=== PATIENT | male | born 1980 | race African-American/Black ===

== ENCOUNTER 2016-07-19 23:14 | Emergency (ER) | payer OTHER ==
[~2016-07-19] VITALS: Ht 170.2 cm; Wt 66.0 kg
[~2016-07-19 23:14] MED LIST: DILA100C PO; LACTGRA PO; LISI-363 PO; METR-1 PO; PHEN100 PO
[2016-07-19 23:16] VITALS: BP 125/87; PULSE 84; RESP 16; TEMP 99.9; O2SAT 98
[2016-07-20] MEDS ORDERED: ZOFR4TAB PO (00:56)
[2016-07-20] MEDS ORDERED: AMOX500C PO (00:56)
[2016-07-20] MEDS ORDERED: DEXAMETHASONE SOD PHOS 20 MG/5 ML VIAL IM ONE (01:00)
[2016-07-20] MEDS ORDERED: IBUPROFEN 600 MG TAB PO ONE (01:00)
[2016-07-20] MEDS ORDERED: ONDANSETRON ODT 4 MG TAB PO ONE (01:00)
--- NOTE | 2016-07-20 01:00 | PD ---
HPI Chief Complaint: ENT Complaint Time Seen by Provider: 00:56 Travel History International Travel<30 days: No Contact w/Intl Traveler<30days: No Traveled to known affect area: No History of Present Illness HPI 35-year-old black male presents to emergency department with a 2 day history of sore throat, fever and chills, congestion, cough, nausea, and general malaise. He denies any vomiting. No abdominal pain or urinary symptoms. Symptoms are moderate. Worse with swallowing. No alleviating factors. PFSH Past Medical History Narrative Medical HIV positive, Hypertension, seizure disorder Autoimmune Disease: Yes (HIV) Blood Disorders: No Heart Rhythm Problems: No Cancer: No Cardiovascular Problems: Yes High Cholesterol: Yes Chest Pain: No Congestive Heart Failure: No Diminished Hearing: No Endocrine: No Gastrointestinal Disorders: No Genitourinary: No Hypertension: Yes Immune Disorder: Yes (HIV) Implanted Vascular Access Dvce: No Musculoskeletal: No Neurologic: Yes (EPILEPSY) Psychiatric: No Reproductive: No Respiratory: No Seizures: Yes Tetanus Vaccination: < 5 Years Past Surgical History Surgical History: No Previous Surgery Other Surgery: No Social History Alcohol Use: No Tobacco Use: Yes (one pk a week) Substance Use: No Allergies-Medications (Allergen,Severity, Reaction): Coded Allergies: Bactrim (Verified Allergy, Severe, RASH AND BURNING, 07/19/16) Reported Meds & Prescriptions Reported Meds & Active Scripts Active Zofran (Ondansetron HCl) 4 Mg Tab 4 Mg PO Q6HR PRN Amoxicillin 500 Mg Cap 1,000 Mg PO BID Dilantin Kapseals (Phenytoin Sodium) 100 Mg Cap 100 Mg PO TID Lactinex (Lactobacillus Acidophilus) 1 Gm Gra 1 Gm PO TID 10 Days Reported Lisinopril 20 mg (Lisinopril) 20 Mg Tab 1 Tab PO DAILY Dilantin 100 Mg Kapseals (Phenytoin Sodium) 100 Mg Caper 300 Mg PO DAILY Review of Systems Except as stated in HPI: all other systems reviewed are Neg Physical Exam Narrative GENERAL: Well-developed, well-nourished in no acute distress. Nontoxic appearing. HEAD: Normocephalic, atraumatic. EYES: Pupils equal round and reactive. Extraocular motions intact. No scleral icterus. No injection or drainage. ENT: TMs clear without erythema. The external auditory canals clear. Nose: clear . Posterior pharynx is erythematous and moist. Positive tonsillar edema but no exudate. Uvula midline. Airway patent. There does not appear to be any obvious abscess. NECK: Trachea midline.Supple, nontender, moves head freely. No central bony tenderness or spasm. Positive tonsillar and cervical adenopathy CARDIOVASCULAR: Regular rate and rhythm without murmurs, gallops, or rubs. RESPIRATORY: Clear to auscultation. Breath sounds equal bilaterally. No wheezes , rales, or rhonchi. GASTROINTESTINAL: Abdomen soft, non-tender, nondistended. No hepato-splenomegaly , or palpable masses. No guarding. EXTREMITIES: No clubbing, cyanosis, or edema. No joint tenderness, effusion, or edema noted. BACK: Nontender without deformity or crepitance. No flank tenderness. Data Data Last Documented VS Vital Signs Date Time Temp Pulse Resp B/P Pulse Ox O2 Delivery O2 Flow Rate FiO2 07/19/16 23:16 99.9 84 16 125/87 98 Room Air Orders Ceftriaxone Inj (Rocephin Inj) (07/20/16 01:00) Dexamethasone Inj (Decadron Inj) (07/20/16 01:00) Ondansetron Odt (Zofran Odt) (07/20/16 01:00) Ibuprofen (Motrin) (07/20/16 01:00) MDM Medical Decision Making Medical Screen Exam Complete: Yes Emergency Medical Condition: Yes Medical Record Reviewed: Yes Differential Diagnosis MDM: High Differential diagnoses: Strep throat, viral pharyngitis, mono, peritonsillar abscess, retropharyngeal abscess, Carmelo's angina Narrative Course Patient is given Decadron 10 mg IM, Rocephin 1 g IM, Zofran 4 mg by mouth and 600 mg of ibuprofen by mouth. This is acute pharyngitis Diagnosis Primary Impression: Acute pharyngitis Qualified Code: J02.9 - Acute pharyngitis, unspecified etiology Patient Instructions: General Instructions Departure Forms: Tests/Procedures, Work Release Special Instructions: NO WORK 3 DAYS Additional Instructions: Rest. Force fluids. Saltwater gargles. Tylenol and Advil. Chloraseptic [place] Cepastat lozenge. Amoxicillin and Zofran. Follow-up with a primary care doctor in one week. Return to the ER if any problems. Med/Other Pt SpecificInfo: Prescription(s) given Scripts Ondansetron (Zofran)4 Mg Tab4 Mg PO Q6HR PRN (NAUSEA OR VOMITING) #6 TAB Prov:Carol Guadarrama MD 07/20/16 Amoxicillin 500 Mg Cap1,000 Mg PO BID #40 CAP Prov:Carol Guadarrama MD 07/20/16 Disposition: 01 DISCHARGE HOME Condition: Stable Corby Durant Jul 20, 2016 01:00
== END 2016-07-20 02:20 | disposition home or self-care (01) ==
LOC: NETRI 23:14
DX: J02.9 Acute pharyngitis, unspecified (principal); I10 Essential (primary) hypertension; E78.00 Pure hypercholesterolemia, unspecified; G40.909 Epilepsy, unspecified, not intractable, without status epilepticus; F17.210 Nicotine dependence, cigarettes, uncomplicated; R75 Inconclusive laboratory evidence of human immunodeficiency virus [HIV]
CPT/HCPCS: 96372; 99283; J0696; J1100

== ENCOUNTER 2016-09-21 11:49 | Emergency (ER) | payer BC ==
[~2016-09-21] VITALS: Ht 172.7 cm; Wt 65.0 kg
[~2016-09-21 11:49] MED LIST changes: +AMOX500C PO; -METR-1 PO; +ZOFR4TAB PO
[2016-09-21 11:50] VITALS: BP 129/79; PULSE 83; RESP 14; TEMP 98.9; O2SAT 99
--- NOTE | 2016-09-21 12:02 | PD ---
Physical Exam Time Seen by Provider: 12:00 Narrative 35 y/o male ehre for evaluation of h/a n/v, fever of 100.4, abdominal pain for 2 days. Vital signs reviewed. Seen at triage desk. Awaiting bed placement. Data Data Last Documented VS Vital Signs Date Time Temp Pulse Resp B/P Pulse Ox O2 Delivery O2 Flow Rate FiO2 09/21/16 11:50 98.9 83 14 129/79 99 MDM Medical Record Reviewed: Yes Supervised Visit with SELVIN: Glenroy Huggins Sep 21, 2016 12:01
--- NOTE | 2016-09-21 13:16 | PD ---
HPI Chief Complaint: Abdominal Pain Time Seen by Provider: 13:15 Travel History International Travel<30 days: No Contact w/Intl Traveler<30days: No Traveled to known affect area: No History of Present Illness HPI 35 YO M with PMH of HTN, HIV (viral load undetectable at last visit) presents to the ED for evaluation of 2 day history of abdominal pain. Patient states the pain started in the periumbilical area but is now localized to the right lower quadrant. He endorses little appetite, fever of 100.4, N/V. last bowel movement was loose, 2 days ago. Denies dysuria, penile discharge. Patient states that while awaiting treatment he began to experience migraine symptoms. Rates headache as "mild," requests Tylenol. PFSH Past Medical History Autoimmune Disease: Yes (HIV) Blood Disorders: No Heart Rhythm Problems: No Cancer: No Cardiovascular Problems: Yes High Cholesterol: Yes Chest Pain: No Congestive Heart Failure: No Diminished Hearing: No Endocrine: No Gastrointestinal Disorders: No Genitourinary: No Hypertension: Yes Immune Disorder: Yes (HIV) Implanted Vascular Access Dvce: No Musculoskeletal: No Neurologic: Yes (EPILEPSY) Psychiatric: No Reproductive: No Respiratory: No Seizures: Yes Past Surgical History Other Surgery: No Social History Alcohol Use: No Tobacco Use: Yes (one pk a week) Substance Use: No Allergies-Medications (Allergen,Severity, Reaction): Coded Allergies: Bactrim (Verified Allergy, Severe, RASH AND BURNING, 09/21/16) Reported Meds & Prescriptions Reported Meds & Active Scripts Active Zofran (Ondansetron HCl) 4 Mg Tab 4 Mg PO Q6HR PRN Amoxicillin 500 Mg Cap 1,000 Mg PO BID Dilantin Kapseals (Phenytoin Sodium) 100 Mg Cap 100 Mg PO TID Lactinex (Lactobacillus Acidophilus) 1 Gm Gra 1 Gm PO TID 10 Days Reported Lisinopril 20 mg (Lisinopril) 20 Mg Tab 1 Tab PO DAILY Dilantin 100 Mg Kapseals (Phenytoin Sodium) 100 Mg Caper 300 Mg PO DAILY Review of Systems Except as stated in HPI: all other systems reviewed are Neg Physical Exam Narrative GENERAL: Well-nourished, well-developed thin black male in no acute distress. SKIN: Focused skin assessment warm/dry. HEAD: Normocephalic. EYES: No scleral icterus. No injection or drainage. NECK: Supple, trachea midline. No JVD or lymphadenopathy. CARDIOVASCULAR: Regular rate and rhythm without murmurs, gallops, or rubs. RESPIRATORY: Breath sounds clear and equal bilaterally. No accessory muscle use. GASTROINTESTINAL: Abdomen soft, nondistended. Tender to deep palpation in the periumbilical and area and right lower quadrant. Hypoactive bowel sounds. MUSCULOSKELETAL: No cyanosis, or edema. Patient is ambulatory. He moves the extremities spontaneously. BACK: Nontender without obvious deformity. No CVA tenderness. Data Data Last Documented VS Vital Signs Date Time Temp Pulse Resp B/P Pulse Ox O2 Delivery O2 Flow Rate FiO2 09/21/16 13:30 99 Room Air 09/21/16 11:50 98.9 83 14 129/79 Orders Complete Blood Count With Diff (09/21/16 12:02) Comprehensive Metabolic Panel (09/21/16 12:02) Urinalysis - C+S If Indicated (09/21/16 12:02) Iv Access Insert/Monitor (09/21/16 12:02) Oxygen Administration (09/21/16 12:02) Oximetry (09/21/16 12:02) Lipase (09/21/16 12:02) Prothrombin Time / Inr (Pt) (09/21/16 13:23) Act Partial Throm Time (Ptt) (09/21/16 13:23) Ct Abd/Pel W Iv Contrast(Rout) (09/21/16 13:23) Ecg Monitoring (09/21/16 13:23) NPO (09/21/16 13:23) Morphine Inj (Morphine Inj) (09/21/16 13:30) Ondansetron Inj (Zofran Inj) (09/21/16 13:30) Sodium Chlor 0.9% 1000 Ml Inj (Ns 1000 M (09/21/16 13:23) Sodium Chloride 0.9% Flush (Ns Flush) (09/21/16 13:30) Acetaminophen (Tylenol) (09/21/16 13:30) Iohexol 350 Inj (Omnipaque 350 Inj) (09/21/16 14:27) Labs Laboratory Tests Test 09/21/16 09/21/16 09/21/16 13:33 13:50 15:10 White Blood Count 7.4 TH/MM3 Red Blood Count 5.82 MIL/MM3 Hemoglobin 13.6 GM/DL Hematocrit 43.1 % Mean Corpuscular Volume 73.9 FL Mean Corpuscular Hemoglobin 23.3 PG Mean Corpuscular Hemoglobin 31.5 % Concent Red Cell Distribution Width 15.9 % Platelet Count 196 TH/MM3 Mean Platelet Volume 7.0 FL Neutrophils (%) (Auto) 47.2 % Lymphocytes (%) (Auto) 44.1 % Monocytes (%) (Auto) 7.9 % Eosinophils (%) (Auto) 0.5 % Basophils (%) (Auto) 0.3 % Neutrophils # (Auto) 3.5 TH/MM3 Lymphocytes # (Auto) 3.3 TH/MM3 Monocytes # (Auto) 0.6 TH/MM3 Eosinophils # (Auto) 0.0 TH/MM3 Basophils # (Auto) 0.0 TH/MM3 CBC Comment DIFF FINAL Differential Comment Sodium Level 139 MEQ/L Potassium Level 4.1 MEQ/L Chloride Level 106 MEQ/L Carbon Dioxide Level 27.9 MEQ/L Anion Gap 5 MEQ/L Blood Urea Nitrogen 10 MG/DL Creatinine 1.04 MG/DL Estimat Glomerular Filtration 99 ML/MIN Rate Random Glucose 86 MG/DL Calcium Level 9.0 MG/DL Total Bilirubin 0.2 MG/DL Aspartate Amino Transf 17 U/L (AST/SGOT) Alanine Aminotransferase 20 U/L (ALT/SGPT) Alkaline Phosphatase 88 U/L Total Protein 7.8 GM/DL Albumin 3.6 GM/DL Lipase 99 U/L Prothrombin Time 10.8 SEC Prothromb Time International 1.0 RATIO Ratio Activated Partial 27.3 SEC Thromboplast Time Urine Color YELLOW Urine Turbidity CLEAR Urine pH 6.5 Urine Specific [place] 1.048 Urine Protein 30 mg/dL Urine Glucose (UA) NEG mg/dL Urine Ketones NEG mg/dL Urine Occult Blood MOD Urine Nitrite NEG Urine Bilirubin NEG Urine Urobilinogen LESS THAN 2.0 MG/DL Urine Leukocyte Esterase NEG Urine RBC 45 /hpf Urine WBC 4 /hpf Urine Mucus FEW /lpf Urine Sperm RARE Microscopic Urinalysis Comment CULT NOT INDICATED MDM Medical Decision Making Medical Screen Exam Complete: Yes Emergency Medical Condition: Yes Differential Diagnosis appendicitis versus diverticulitis versus nephroureterolithiasis versus other Narrative Course 35 YO M with PMH of HTN, HIV (viral load undetectable at last visit) presents to the ED for evaluation of 2 day history of abdominal pain. Patient states the pain started in the periumbilical area but is now localized to the right lower quadrant. He endorses little appetite, fever of 100.4, N/V. Last bowel movement was loose, 2 days ago. Denies dysuria, penile discharge. Mild headache came on in triage, requests Tylenol. Vitals reviewed. Physical exam reveals TTP of the RLQ, otherwise unremarkable. Patient was administered 1L NS bolus, 4mg morphine, 4 mg Zofran IV and 650 Tylenol by mouth. CBC: WBC 7.4. Hemoglobin 13.6. INR 1.0. CMP: Unremarkable. UA: Moderate occult blood, 45 rbc's. Nitrate negative. No culture indicated. CT: No inflammatory changes in the abdomen or pelvis per radiology read. Discussed the patient with Dr. Aldrich. Discussed the results of the workup with the patient. I suspect that he passed a ureteral stone. He reports feeling "completely fine" on recheck. He is instructed to rest, hydrate, return to normal activities, resume all at home medications, follow up with his primary care. He is instructed to return for worsening of symptoms. He indicated understanding of instructions and is agreeable to the care plan. He is stable and discharged home. Diagnosis Primary Impression: Right lower quadrant abdominal pain Additional Impressions: Hematuria Headache Qualified Code: R51 - Nonintractable episodic headache, unspecified headache type Referrals: Primary Care Physician Patient Instructions: General Instructions, Ureteral Stones (ED) Additional Instructions: Rest, hydrate. Return to normal, gentle activity as tolerated. Resume all at home medications. Follow up with your primary care provider. Return to the ED for worsening of symptoms or any urgent or emergent medical condition. Disposition: 01 DISCHARGE HOME Condition: Stable Linnea Parmar Sep 21, 2016 13:16
[2016-09-21] MEDS ORDERED: SODIUM CHLOR 0.9% 1000 ML INJ 1,000 ML IV SCH (13:23)
[2016-09-21] MEDS ORDERED: ONDANSETRON HCL 4 MG/2 ML VIAL IVP ONE (13:30)
[2016-09-21] MEDS ORDERED: MORPHINE SULFATE 4 MG/ML INJ IV PUSH ONE (13:30)
[2016-09-21] MEDS ORDERED: ACETAMINOPHEN 325 MG TAB PO ONE (13:30)
[2016-09-21] MEDS ORDERED: SODIUM CHLORIDE 0.9% FLUSH 10 ML FLUSH IV FLUSH PRN (13:30)
[2016-09-21 13:39] LABS: AUTOMATED NEUTROPHIL # 3.5 TH/MM3 (1.8-7.7); BASOPHIL % 0.3 % (0.0-2.0); EOSINOPHIL % 0.5 % (0.0-4.0); HEMATOCRIT 43.1 % (39.0-51.0); HEMO FLAGS DIFF FINAL; LYMPH % 44.1 % (9.0-44.0); LYMPHOCYTE # 3.3 TH/MM3 (1.0-4.8); MEAN CELL VOLUME 73.9 FL (80.0-100.0); MEAN CORPUSCULAR HEMOGLOBIN 23.3 PG (27.0-34.0); MEAN CORPUSCULAR HGB CONC 31.5 % (32.0-36.0); MONO % 7.9 % (0.0-8.0); NEUT % 47.2 % (16.0-70.0); PLATELET COUNT 196 TH/MM3 (150-450); RED BLOOD COUNT 5.82 MIL/MM3 (4.50-5.90); RED CELL DISTRIBUTION WIDTH 15.9 % (11.6-17.2); WHITE BLOOD COUNT 7.4 TH/MM3 (4.0-11.0)
[2016-09-21 13:55] LABS: ANION GAP 5 MEQ/L (5-15); AST (GOT) 17 U/L (15-37); BICARBONATE 27.9 MEQ/L (21.0-32.0); BLOOD UREA NITROGEN 10 MG/DL (7-18); CHLORIDE 106 MEQ/L (98-107); GLOMERULAR FILTRATION RATE 99 ML/MIN (>89); POTASSIUM 4.1 MEQ/L (3.5-5.1); SODIUM (NA) 139 MEQ/L (136-145)
[2016-09-21 13:59] LABS: ALKALINE PHOSPHATASE 88 U/L (45-117); ALT (GPT) 20 U/L (12-78); TOTAL BILIRUBIN ADULT 0.2 MG/DL (0.2-1.0)
[2016-09-21 14:14] LABS: APTT (PATIENT) 27.3 SEC (24.3-30.1); PROTHROMBIN TIME - PATIENT 10.8 SEC (9.8-11.6)
[2016-09-21] MEDS ORDERED: IOHEXOL 350 MG/ML 10 ML VIAL (for RAD DIAG) IV ONE (14:27)
--- NOTE | 2016-09-21 14:50 | RADRPT ---
EXAM DATE/TIME: 09/21/2016 14:21 [facility] COMPARISON: CT ABDOMEN & PELVIS W CONTRAST, February 18, 2015, 12:39. INDICATIONS : Periumbilical and right lower quadrant painfor twodays. IV CONTRAST: 71 cc Omnipaque 350 (iohexol) IV ORAL CONTRAST: No oral contrast ingested. RADIATION DOSE: 9.96 CTDIvol (mGy) MEDICAL HISTORY : Seizures. Cardiovascular disease Hypertension. HIV SURGICAL HISTORY : None. ENCOUNTER: Initial ACUITY: 2 days PAIN SCALE: 9/10 LOCATION: Right ABDOMEN TECHNIQUE: Volumetric scanning of the abdomen and pelvis was performed. Using automated exposure control and ad justment of the mA and/or kV according to patient size, radiation dose was kept as low as reasonably achievable to obtain optimal diagnostic quality images. FINDINGS: Lung bases are clear. Liver, spleen, pancreas, adrenals and kidneys are unremarkable. The region of the cecum and terminal ileum are unremarkable. Pelvic contents are unremarkable. There is no ascites or adenopathy appreciated. There is a small h ydrocele on the right. There is no inguinal hernia. CONCLUSION: I do not see an etiology for patient's periumbilical pain. There are no inflammatory changes in the abdomen or pelvis to account for such. Atul Akbar MD FACR on September 21, 2016 at 14:34 Board Certified Radiologist. This report was verified electronically.
[2016-09-21 15:27] LABS: BLOOD, URINE MOD (NEG); COMMENT (UR) CULT NOT INDICATED; CULTURE IF INDICATED CULT NOT INDICATED; GLUCOSE,URINE NEG (NEG); KETONE, URINE NEG (NEG); MUCUS URINE FEW /lpf (OCC); NITRITE,URINE NEG (NEG); PH, URINE 6.5 (5.0-8.5); URINE COLOR YELLOW (YELLW/STRAW)
--- NOTE | 2016-09-21 16:06 | PD ---
Data Data Last Documented VS Vital Signs Date Time Temp Pulse Resp B/P Pulse Ox O2 Delivery O2 Flow Rate FiO2 09/21/16 13:30 99 Room Air 09/21/16 11:50 98.9 83 14 129/79 Orders Complete Blood Count With Diff (09/21/16 12:02) Comprehensive Metabolic Panel (09/21/16 12:02) Urinalysis - C+S If Indicated (09/21/16 12:02) Iv Access Insert/Monitor (09/21/16 12:02) Oxygen Administration (09/21/16 12:02) Oximetry (09/21/16 12:02) Lipase (09/21/16 12:02) Prothrombin Time / Inr (Pt) (09/21/16 13:23) Act Partial Throm Time (Ptt) (09/21/16 13:23) Ct Abd/Pel W Iv Contrast(Rout) (09/21/16 13:23) Ecg Monitoring (09/21/16 13:23) NPO (09/21/16 13:23) Morphine Inj (Morphine Inj) (09/21/16 13:30) Ondansetron Inj (Zofran Inj) (09/21/16 13:30) Sodium Chlor 0.9% 1000 Ml Inj (Ns 1000 M (09/21/16 13:23) Sodium Chloride 0.9% Flush (Ns Flush) (09/21/16 13:30) Acetaminophen (Tylenol) (09/21/16 13:30) Iohexol 350 Inj (Omnipaque 350 Inj) (09/21/16 14:27) Labs Laboratory Tests Test 09/21/16 09/21/16 09/21/16 13:33 13:50 15:10 White Blood Count 7.4 TH/MM3 Red Blood Count 5.82 MIL/MM3 Hemoglobin 13.6 GM/DL Hematocrit 43.1 % Mean Corpuscular Volume 73.9 FL Mean Corpuscular Hemoglobin 23.3 PG Mean Corpuscular Hemoglobin 31.5 % Concent Red Cell Distribution Width 15.9 % Platelet Count 196 TH/MM3 Mean Platelet Volume 7.0 FL Neutrophils (%) (Auto) 47.2 % Lymphocytes (%) (Auto) 44.1 % Monocytes (%) (Auto) 7.9 % Eosinophils (%) (Auto) 0.5 % Basophils (%) (Auto) 0.3 % Neutrophils # (Auto) 3.5 TH/MM3 Lymphocytes # (Auto) 3.3 TH/MM3 Monocytes # (Auto) 0.6 TH/MM3 Eosinophils # (Auto) 0.0 TH/MM3 Basophils # (Auto) 0.0 TH/MM3 CBC Comment DIFF FINAL Differential Comment Sodium Level 139 MEQ/L Potassium Level 4.1 MEQ/L Chloride Level 106 MEQ/L Carbon Dioxide Level 27.9 MEQ/L Anion Gap 5 MEQ/L Blood Urea Nitrogen 10 MG/DL Creatinine 1.04 MG/DL Estimat Glomerular Filtration 99 ML/MIN Rate Random Glucose 86 MG/DL Calcium Level 9.0 MG/DL Total Bilirubin 0.2 MG/DL Aspartate Amino Transf 17 U/L (AST/SGOT) Alanine Aminotransferase 20 U/L (ALT/SGPT) Alkaline Phosphatase 88 U/L Total Protein 7.8 GM/DL Albumin 3.6 GM/DL Lipase 99 U/L Prothrombin Time 10.8 SEC Prothromb Time International 1.0 RATIO Ratio Activated Partial 27.3 SEC Thromboplast Time Urine Color YELLOW Urine Turbidity CLEAR Urine pH 6.5 Urine Specific [place] 1.048 Urine Protein 30 mg/dL Urine Glucose (UA) NEG mg/dL Urine Ketones NEG mg/dL Urine Occult Blood MOD Urine Nitrite NEG Urine Bilirubin NEG Urine Urobilinogen LESS THAN 2.0 MG/DL Urine Leukocyte Esterase NEG Urine RBC 45 /hpf Urine WBC 4 /hpf Urine Mucus FEW /lpf Urine Sperm RARE Microscopic Urinalysis Comment CULT NOT INDICATED MDM Supervised Visit with SELVIN: Yes Narrative Course The history, exam, and medical decision-making in the associated midlevel provider note were completed with my assistance. I reviewed and agree with the findings presented. I attest that I had a [id number] encounter with the patient on the same day, and personally performed and documented my assessment and findings in the medical record. *My assessment and Findings: This is a 35 year old male who presents to the emergency department with right lower quadrant abdominal pain that radiates to the flank. He has a history of diabetes and HIV. Labs were obtained which were reassuring. CT abdomen and pelvis was unremarkable. Patient did have blood in his urine. I suspect he had a kidney stone which passed. He is very well-appearing on my exam. I think he can safely be discharged. Diagnosis Primary Impression: Right lower quadrant abdominal pain Additional Impressions: Hematuria Headache Qualified Code: R51 - Nonintractable episodic headache, unspecified headache type Referrals: Primary Care Physician Patient Instructions: General Instructions, Ureteral Stones (ED) Additional Instruction: Rest, hydrate. Return to normal, gentle activity as tolerated. Resume all at home medications. Follow up with your primary care provider. Return to the ED for worsening of symptoms or any urgent or emergent medical condition. Disposition: 01 DISCHARGE HOME Condition: Stable Mercedes Aldrich MD Sep 21, 2016 16:06
== END 2016-09-21 20:56 | disposition home or self-care (01) ==
LOC: NEPD 11:49
DX: B20 Human immunodeficiency virus [HIV] disease (principal); R10.31 Right lower quadrant pain; R31.9 Hematuria, unspecified; R51 Headache; R50.9 Fever, unspecified; I10 Essential (primary) hypertension; F17.200 Nicotine dependence, unspecified, uncomplicated
CPT/HCPCS: 74177; 80053; 81001; 83690; 85025; 85610; 85730; 96374; 96375; 99285; J2270; J2405; J7030; Q9967

== ENCOUNTER 2016-10-05 03:51 | Emergency (ER) | payer BC ==
[~2016-10-05] VITALS: Ht 172.7 cm; Wt 55.0 kg
[2016-10-05 03:56] VITALS: BP 128/92; PULSE 76; RESP 18; TEMP 98.8; O2SAT 99
--- NOTE | 2016-10-05 04:12 | PD ---
HPI Chief Complaint: Seizure Time Seen by Provider: 04:03 Travel History International Travel<30 days: No Contact w/Intl Traveler<30days: No Traveled to known affect area: No History of Present Illness HPI The patient is 35 year old male who presents to the [facility] emergency department with a history of reportedly having seizure activity 2 prior to arrival. Unfortunately, the patient on examination is drowsy and confused. The patient has stuttering speech noted. The patient reports that he has had seizures in the past. He reports that he has been taking his medication. He does not know the name of this medication. He reports that his grandmother knows the names of his medications. According to ambulance services, the patient is at his baseline of mentation. The patient is unable to provide any other significant history or able to answer questions regarding review of systems. The patient's blood sugar prior to arrival was reportedly 98. PFSH Past Medical History Narrative Medical The patient's past medical history is significant for seizure disorder. According to the electronic medical record, the patient also has a history of HIV, hyperlipidemia, hypertension. Autoimmune Disease: Yes (HIV) Blood Disorders: No Heart Rhythm Problems: No Cancer: No Cardiovascular Problems: Yes High Cholesterol: Yes Chest Pain: No Congestive Heart Failure: No Diminished Hearing: No Endocrine: No Gastrointestinal Disorders: No Genitourinary: No Hypertension: Yes Immune Disorder: Yes (HIV) Implanted Vascular Access Dvce: No Musculoskeletal: No Neurologic: Yes (EPILEPSY) Psychiatric: No Reproductive: No Respiratory: No Seizures: Yes Past Surgical History Narrative Surgical The patient's past surgical history is unable to be obtained. Other Surgery: No Social History Alcohol Use: No Tobacco Use: Yes (one pk a week) Substance Use: No Allergies-Medications (Allergen,Severity, Reaction): Coded Allergies: Bactrim (Verified Allergy, Severe, RASH AND BURNING, 09/21/16) Reported Meds & Prescriptions Reported Meds & Active Scripts Active Reported Dilantin (Phenytoin Extended) 30 Mg Cap Unknown Dose PO TID Review of Systems ROS Limitations: Poor Historian Respiratory: No: Cough Gastrointestinal: No: Nausea, Vomiting, Diarrhea, Abdominal Pain Neurologic: Positive: Seizures Physical Exam Narrative General: The patient is a well-developed well-nourished well-nourished male in no acute distress. Head and Neck exam: Head is normocephalic atraumatic. Eyes: EOMI, pupils are equal round and reactive to light. Nose: Midline septum with pink mucous membranes Mouth: Dentition unremarkable. Moist mucus membranes. Posterior oropharynx is not erythematous. No tonsillar hypertrophy. Uvula midline. Airway patent. Neck: No palpable lymphadenopathy. No nuchal rigidity. No thyromegaly. Cardiovascular: Regular rate and rhythm without murmurs, gallops, or rubs. Lungs: Clear to auscultation bilaterally. No wheezes, rhonchi, or rales. Abdomen: Soft, without tenderness to palpation in all 4 quadrants of the abdomen. No guarding, rebound, or rigidity. Normal bowel sounds are audible. Extremities: No clubbing, cyanosis, or edema. 2+ pulses in all 4 extremities. No calf tenderness on palpation. Back: No spinous process tenderness to palpation. No costovertebral angle tenderness to palpation. Neurologic Exam: Cranial nerves 2-12 were intact on exam. Strength is 5/5 in all 4 extremities. No sensory deficits noted. The patient has stuttering speech noted on arrival with infantile mannerisms suspicious for a history of developmental delay. On further questioning upon the patient's family's arrival they report that he develops this type his speech pattern when he is post ictal. The patient on reexamination is improving. Skin Exam: No rash noted. Intact skin that is warm and dry. Data Data Last Documented VS Vital Signs Date Time Temp Pulse Resp B/P Pulse Ox O2 Delivery O2 Flow Rate FiO2 10/05/16 05:00 65 16 110/80 98 Room Air 10/05/16 03:56 98.8 Orders Complete Blood Count With Diff (10/05/16 04:03) Comprehensive Metabolic Panel (10/05/16 04:03) Prothrombin Time / Inr (Pt) (10/05/16 04:03) Act Partial Throm Time (Ptt) (10/05/16 04:03) Urinalysis - C+S If Indicated (10/05/16 04:03) Magnesium (Mg) (10/05/16 04:03) Phenytoin (Dilantin) (10/05/16 04:03) Ct Brain W/O Iv Contrast(Rout) (10/05/16 04:03) Iv Access Insert/Monitor (10/05/16 04:03) Ecg Monitoring (10/05/16 04:03) Oximetry (10/05/16 04:03) Drug Screen, Random Urine (10/05/16 04:03) Alcohol (Ethanol) (10/05/16 04:03) Sodium Chlor 0.9% 1000 Ml Inj (Ns 1000 M (10/05/16 04:15) Fosphenytoin Inj (Cerebyx Inj) (10/05/16 05:00) Labs Laboratory Tests Test 10/05/16 04:00 White Blood Count 7.8 TH/MM3 Red Blood Count 6.18 MIL/MM3 Hemoglobin 14.5 GM/DL Hematocrit 44.3 % Mean Corpuscular Volume 71.6 FL Mean Corpuscular Hemoglobin 23.5 PG Mean Corpuscular Hemoglobin 32.8 % Concent Red Cell Distribution Width 15.8 % Platelet Count 225 TH/MM3 Mean Platelet Volume 7.5 FL Neutrophils (%) (Auto) 53.9 % Lymphocytes (%) (Auto) 34.9 % Monocytes (%) (Auto) 10.8 % Eosinophils (%) (Auto) 0.0 % Basophils (%) (Auto) 0.4 % Neutrophils # (Auto) 4.2 TH/MM3 Lymphocytes # (Auto) 2.7 TH/MM3 Monocytes # (Auto) 0.8 TH/MM3 Eosinophils # (Auto) 0.0 TH/MM3 Basophils # (Auto) 0.0 TH/MM3 CBC Comment DIFF FINAL Differential Comment Prothrombin Time 10.9 SEC Prothromb Time International 1.0 RATIO Ratio Activated Partial 25.7 SEC Thromboplast Time Sodium Level 141 MEQ/L Potassium Level 3.5 MEQ/L Chloride Level 104 MEQ/L Carbon Dioxide Level 27.9 MEQ/L Anion Gap 9 MEQ/L Blood Urea Nitrogen 14 MG/DL Creatinine 1.17 MG/DL Estimat Glomerular Filtration 86 ML/MIN Rate Random Glucose 84 MG/DL Calcium Level 9.4 MG/DL Magnesium Level 1.7 MG/DL Total Bilirubin 0.3 MG/DL Aspartate Amino Transf 27 U/L (AST/SGOT) Alanine Aminotransferase 23 U/L (ALT/SGPT) Alkaline Phosphatase 95 U/L Total Protein 8.7 GM/DL Albumin 4.2 GM/DL Phenytoin (Dilantin) Level 0.5 MCG/ML Ethyl Alcohol Level LESS THAN 3 MG/DL MDM Medical Decision Making Medical Screen Exam Complete: Yes Emergency Medical Condition: Yes Medical Record Reviewed: Yes Interpretation(s) Last Impressions Head CT 10/05/16 0403 Signed Impressions: Service Date/Time: Wednesday, October 05, 2016 04:15 - CONCLUSION: Negative noncontrast head CT. Dipesh Dye MD Differential Diagnosis Medication noncompliance, versus intracranial abnormality, versus electrolyte abnormality Narrative Course During the course of the patients emergency department visit, the patients history, examination, and differential diagnosis were reviewed with the patient. The patient had IV access obtained and blood work sent for analysis. 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 The patient was initially provided normal saline 1 L IV fluid bolus. The patients laboratory studies were reviewed and remarkable for white count of 7.8, hemoglobin 14.5, platelets 225 with 10.8 monocytes, CMP is remarkable for a GFR of 86, total protein 8.7, PT 10.9, PTT 25.7, alcohol level less than 3 , phenytoin 0.5. The patient was loaded with fosphenytoin 1 g IV. Radiology studies were reviewed and remarkable for a CT scan of the brain that shows no acute abnormality. The patient's results were discussed with him, his questions were answered. The patient was instructed regarding the importance of taking his seizure medication on a regular basis in order to prevent recurrent seizure activity. The patient is resting comfortably and feels better, is alert and in no distress. The patients results and examination findings were discussed with the patient. The repeat examination is unremarkable and benign. The history, exam, diagnostic testing, and current condition do not suggest any significant pathology to warrant further testing, continued ED treatment, admission, or surgical evaluation at this point. The vital signs have been stable. The patient does not have uncontrollable pain, intractable vomiting, or other significant symptoms. The patient's condition is stable and appropriate for discharge. The patient will pursue further outpatient evaluation with a primary care physician or other designated or consulting physician as indicated in the discharge instructions. The patient expressed understanding and was agreeable with this plan. Diagnosis Primary Impression: Seizure disorder Additional Impression: Noncompliance with medication regimen Referrals: Primary Care Physician 2 days Patient Instructions: Epilepsy (ED), General Instructions Disposition: 01 DISCHARGE HOME Condition: Stable Carol Guadarrama MD Oct 05, 2016 04:12
[2016-10-05] MEDS ORDERED: SODIUM CHLOR 0.9% 1000 ML INJ 1,000 ML IV ONE (04:15)
[2016-10-05] MEDS ORDERED: DILA30CA PO (04:18)
[2016-10-05 04:24] LABS: AUTOMATED NEUTROPHIL # 4.2 TH/MM3 (1.8-7.7); BASOPHIL % 0.4 % (0.0-2.0); HEMATOCRIT 44.3 % (39.0-51.0); HEMO FLAGS DIFF FINAL; LYMPH % 34.9 % (9.0-44.0); LYMPHOCYTE # 2.7 TH/MM3 (1.0-4.8); MEAN CELL VOLUME 71.6 FL (80.0-100.0); MEAN CORPUSCULAR HEMOGLOBIN 23.5 PG (27.0-34.0); MEAN CORPUSCULAR HGB CONC 32.8 % (32.0-36.0); MONO % 10.8 % (0.0-8.0); NEUT % 53.9 % (16.0-70.0); PLATELET COUNT 225 TH/MM3 (150-450); RED BLOOD COUNT 6.18 MIL/MM3 (4.50-5.90); RED CELL DISTRIBUTION WIDTH 15.8 % (11.6-17.2); WHITE BLOOD COUNT 7.8 TH/MM3 (4.0-11.0)
--- NOTE | 2016-10-05 04:24 | RADRPT ---
EXAM DATE/TIME: 10/05/2016 04:15 [facility] COMPARISON: CT BRAIN W/O CONTRAST, January 26, 2016, 15:24. INDICATIONS : Possible seizure. RADIATION DOSE: 37.21 CTDIvol (mGy) MEDICAL HISTORY : Seizures. Cardiovascular disease HIV.Hypertension. SURGICAL HISTORY : None. ENCOUNTER: Initial ACUITY: 1 day PAIN SCALE: 7/10 LOCATION: cranial TECHNIQUE: Multiple contiguous axial images were obtained of the head. Using automated exposure control and adj ustment of the mA and/or kV according to patient size, radiation dose was kept as low as reasonably a chievable to obtain optimal diagnostic quality images. FINDINGS: CEREBRUM: The ventricles are normal for age. No evidence of midline shift, mass lesion, hemorrhage or acute in farction. No extra-axial fluid collections are seen. POSTERIOR FOSSA: The cerebellum and brainstem are intact. The 4th ventricle is midline. The cerebellopontine angle i s unremarkable. EXTRACRANIAL: The visualized portion of the orbits is intact. SKULL: The calvaria is intact. No evidence of skull fracture. CONCLUSION: Negative noncontrast head CT. Dipesh Dye MD on October 05, 2016 at 4:23 Board Certified Radiologist. This report was verified electronically.
[2016-10-05 04:35] LABS: ALT (GPT) 23 U/L (12-78); ANION GAP 9 MEQ/L (5-15); AST (GOT) 27 U/L (15-37); BICARBONATE 27.9 MEQ/L (21.0-32.0); BLOOD UREA NITROGEN 14 MG/DL (7-18); CHLORIDE 104 MEQ/L (98-107); GLOMERULAR FILTRATION RATE 86 ML/MIN (>89); MAGNESIUM 1.7 MG/DL (1.5-2.5); POTASSIUM 3.5 MEQ/L (3.5-5.1); SODIUM (NA) 141 MEQ/L (136-145)
[2016-10-05 04:37] LABS: ALKALINE PHOSPHATASE 95 U/L (45-117); TOTAL BILIRUBIN ADULT 0.3 MG/DL (0.2-1.0)
[2016-10-05 04:39] LABS: APTT (PATIENT) 25.7 SEC (24.3-30.1); PROTHROMBIN TIME - PATIENT 10.9 SEC (9.8-11.6)
[2016-10-05 05:00] VITALS: BP 110/80; PULSE 65; RESP 16; O2SAT 98
[2016-10-05] MEDS ORDERED: FOSPHENYTOIN INJ 1,000 MGPE in SODIUM CHLORIDE 0.9% INJ 50 ML IV ONE (05:00)
[2016-10-05] MEDS ORDERED: DILA100C PO (07:21)
== END 2016-10-05 07:38 | disposition home or self-care (01) ==
LOC: NEPE 03:51
DX: R56.9 Unspecified convulsions (principal); I10 Essential (primary) hypertension; E78.5 Hyperlipidemia, unspecified; E78.00 Pure hypercholesterolemia, unspecified; F17.210 Nicotine dependence, cigarettes, uncomplicated; Z91.14 Patient's other noncompliance with medication regimen; Z21 Asymptomatic human immunodeficiency virus [HIV] infection status
CPT/HCPCS: 70450; 80053; 80185; 80307; 83735; 85025; 85610; 85730; 96374; 99285; J7030; Q2009

== ENCOUNTER 2017-06-13 07:06 | Emergency (ER) | payer BC ==
[~2017-06-13] VITALS: Ht 180.3 cm; Wt 71.0 kg
[~2017-06-13 07:06] MED LIST changes: -AMOX500C PO; +DILA30CA PO; -LACTGRA PO; -LISI-363 PO; -PHEN100 PO; -ZOFR4TAB PO
[2017-06-13 07:14] VITALS: BP 134/88; PULSE 52; RESP 17; TEMP 97.7; O2SAT 100
[2017-06-13] MEDS ORDERED: DILA100C PO ×2 (07:22→11:15)
--- NOTE | 2017-06-13 08:11 | PD ---
HPI Chief Complaint: Seizure Time Seen by Provider: 07:48 Travel History International Travel<30 days: No Contact w/Intl Traveler<30days: No Traveled to known affect area: No History of Present Illness HPI 36yo M with PMH of seizure disorder noncompliant with medication, HIV, HLD, HTN for evaluation after seizure. As per my nurse, EVAC brought him in because a friend reported that he had an episode of seizure. Pt is post ictal and said he does not remember what happened. Pt does complain of right sided headache although he has no external signs of trauma. Pt admits to not taking his dilantin for a while. PFSH Past Medical History Autoimmune Disease: Yes (HIV) Blood Disorders: No Heart Rhythm Problems: No Cancer: No Cardiovascular Problems: Yes High Cholesterol: Yes Chest Pain: No Congestive Heart Failure: No Diminished Hearing: No Endocrine: No Gastrointestinal Disorders: No Genitourinary: No Hypertension: Yes Immune Disorder: Yes (HIV) Implanted Vascular Access Dvce: No Musculoskeletal: No Neurologic: Yes (EPILEPSY) Psychiatric: No Reproductive: No Respiratory: No Immunizations Current: Yes Seizures: Yes Tetanus Vaccination: < 5 Years Influenza Vaccination: No Past Surgical History Surgical History: No Previous Surgery Other Surgery: No Social History Alcohol Use: No Tobacco Use: Yes (one pk a week) Substance Use: No Allergies-Medications (Allergen,Severity, Reaction): Coded Allergies: sulfamethoxazole (Verified Allergy, Severe, RASH AND BURNING, 06/13/17) trimethoprim (Verified Allergy, Severe, RASH AND BURNING, 06/13/17) Reported Meds & Prescriptions Reported Meds & Active Scripts Active Reported Dilantin (Phenytoin Extended) 100 Mg Cap 300 Mg PO DAILY Review of Systems Except as stated in HPI: all other systems reviewed are Neg Physical Exam Narrative GENERAL: 36yo M not in distress. SKIN: Focused skin assessment warm/dry. HEAD: Atraumatic. Normocephalic. EYES: Pupils equal and round at 4mm bilaterally. EOMI> ENT: No nasal bleeding or discharge. Mucous membranes pink and moist. NECK: Trachea midline. No JVD. CARDIOVASCULAR: Regular rate and rhythm. No murmur appreciated. RESPIRATORY: No accessory muscle use. Clear to auscultation. Breath sounds equal bilaterally. GASTROINTESTINAL: Abdomen soft, non-tender, nondistended. MUSCULOSKELETAL: No obvious deformities. No clubbing. No cyanosis. No edema. NEUROLOGICAL: Arousable. No obvious cranial nerve deficits. Motor grossly within normal limits. Sensation intact. Stuttering. Unknown if this is new. Data Data Last Documented VS Vital Signs Date Time Temp Pulse Resp B/P (MAP) Pulse Ox O2 Delivery O2 Flow Rate FiO2 06/13/17 10:00 97.8 78 16 124/83 (97) 99 Room Air Orders Orders Fosphenytoin Inj (Cerebyx Inj) (06/13/17 08:15) Complete Blood Count With Diff (06/13/17 08:07) Basic Metabolic Panel (Bmp) (06/13/17 08:07) Magnesium (Mg) (06/13/17 08:07) Prothrombin Time / Inr (Pt) (06/13/17 08:07) Act Partial Throm Time (Ptt) (06/13/17 08:07) Ct Brain W/O Iv Contrast(Rout) (06/13/17 ) Sodium Chlor 0.9% 1000 Ml Inj (Ns 1000 M (06/13/17 08:15) Acetaminophen (Tylenol) (06/13/17 10:45) Phenytoin (Dilantin) (06/13/17 11:15) Labs Laboratory Tests Test 06/13/17 08:15 White Blood Count 2.9 TH/MM3 Red Blood Count 5.75 MIL/MM3 Hemoglobin 13.3 GM/DL Hematocrit 41.5 % Mean Corpuscular Volume 72.1 FL Mean Corpuscular Hemoglobin 23.2 PG Mean Corpuscular Hemoglobin Concent 32.2 % Red Cell Distribution Width 14.9 % Platelet Count 221 TH/MM3 Mean Platelet Volume 7.6 FL Neutrophils (%) (Auto) 27.9 % Lymphocytes (%) (Auto) 50.4 % Monocytes (%) (Auto) 20.5 % Eosinophils (%) (Auto) 0.6 % Basophils (%) (Auto) 0.6 % Neutrophils # (Auto) 0.8 TH/MM3 Lymphocytes # (Auto) 1.5 TH/MM3 Monocytes # (Auto) 0.6 TH/MM3 Eosinophils # (Auto) 0.0 TH/MM3 Basophils # (Auto) 0.0 TH/MM3 CBC Comment AUTO DIFF Differential Total Cells Counted 100 Neutrophils % (Manual) 36 % Lymphocytes % 48 % Monocytes % 16 % Neutrophils # (Manual) 1.0 TH/MM3 Differential Comment FINAL DIFF MANUAL Platelet Estimate NORMAL Platelet Morphology Comment NORMAL Prothrombin Time 10.0 SEC Prothromb Time International Ratio 1.0 RATIO Activated Partial Thromboplast Time 24.8 SEC Blood Urea Nitrogen 9 MG/DL Creatinine 1.06 MG/DL Random Glucose 87 MG/DL Calcium Level 8.5 MG/DL Magnesium Level 1.8 MG/DL Sodium Level 140 MEQ/L Potassium Level 4.0 MEQ/L Chloride Level 107 MEQ/L Carbon Dioxide Level 29.5 MEQ/L Anion Gap 4 MEQ/L Estimat Glomerular Filtration Rate 96 ML/MIN [facility] Medical Decision Making Medical Screen Exam Complete: Yes Emergency Medical Condition: Yes Differential Diagnosis Seizure secondary to noncompliance vs. electrolyte abnormality vs. possible head trauma Narrative Course 36yo M with history or seizure here with episode. I was unable to get a good history initially so CT brain ordered since pt complained of headache and unknown if there was trauma. CT brain negative. Labs reviewed, WBC is low at 2.9. Pt has HIV and is on medication but does not know CD4 count. BMP unremarkable. Magnesium normal. Pt has been noncompliant with his dilantin. Pt's brother came and said he was sleeping and had a seizure while on the bed. No head trauma. Pt given acetaminophen for headache and it improved. Pt said he has stuttering after his seizures usually for days and this is normal for him. Brother said he is at normal baseline mental status. Diagnosis Primary Impression: Seizure disorder Referrals: Panda Eagle MD call for appointment Patient Instructions: General Instructions Departure Forms: Tests/Procedures Additional Instructions: Please follow up with neurology for your seizure. Please follow up with your primary care physician. Return to the ED if symptoms worsen. Med/Other Pt SpecificInfo: Prescription(s) given Scripts Phenytoin Extended (Dilantin) 100 Mg Cap 100 MG PO TID for Control Seizures, #90 CAP 0 Refills Prov: Mirella Reese 06/13/17 Disposition: 01 DISCHARGE HOME Condition: Stable Mirella Reese Jun 13, 2017 08:11
[2017-06-13] MEDS ORDERED: FOSPHENYTOIN INJ 1,000 MGPE in SODIUM CHLORIDE 0.9% INJ 50 ML IV ONE (08:15)
[2017-06-13] MEDS ORDERED: SODIUM CHLOR 0.9% 1000 ML INJ 1,000 ML IV ONE (08:15)
[2017-06-13 08:30] VITALS: BP 128/86; PULSE 81; RESP 16; TEMP 97.8; O2SAT 99
--- NOTE | 2017-06-13 08:46 | RADRPT ---
EXAM DATE/TIME: 06/13/2017 08:22 [facility] COMPARISON: CT BRAIN W/O CONTRAST, October 05, 2016, 4:15. INDICATIONS : Seizure, headache, head injury. RADIATION DOSE: 36.23 CTDIvol (mGy) MEDICAL HISTORY : Cardiovascular disease. Hypercholesterolemia. Hypertension.HIV, c diff 2015, epilepsy SURGICAL HISTORY : None. ENCOUNTER: Initial ACUITY: 1 day PAIN SCALE: 6/10 LOCATION: Bilateral cranial TECHNIQUE: Multiple contiguous axial images were obtained of the head. Using automated exposure control and adj ustment of the mA and/or kV according to patient size, radiation dose was kept as low as reasonably a chievable to obtain optimal diagnostic quality images. DICOM format image data is available electro nically for review and comparison. FINDINGS: CEREBRUM: The ventricles are normal for age. No evidence of midline shift, mass lesion, hemorrhage or acute in farction. No extra-axial fluid collections are seen. POSTERIOR FOSSA: The cerebellum and brainstem are intact. The 4th ventricle is midline. The cerebellopontine angle i s unremarkable. EXTRACRANIAL: The visualized portion of the orbits is intact. SKULL: The calvaria is intact. No evidence of skull fracture. CONCLUSION: No acute disease. Dipesh Adams MD on June 13, 2017 at 8:44 Board Certified Radiologist. This report was verified electronically.
[2017-06-13 08:47] LABS: AUTOMATED NEUTROPHIL # 0.8 TH/MM3 (1.8-7.7); BASOPHIL % 0.6 % (0.0-2.0); EOSINOPHIL % 0.6 % (0.0-4.0); HEMATOCRIT 41.5 % (39.0-51.0); HEMOGLOBIN 13.3 GM/DL (13.0-17.0); LYMPH % 50.4 % (9.0-44.0); LYMPHOCYTE # 1.5 TH/MM3 (1.0-4.8); MEAN CELL VOLUME 72.1 FL (80.0-100.0); MEAN CORPUSCULAR HEMOGLOBIN 23.2 PG (27.0-34.0); MEAN CORPUSCULAR HGB CONC 32.2 % (32.0-36.0); MEAN PLATELET VOLUME 7.6 FL (7.0-11.0); MONO % 20.5 % (0.0-8.0); MONOCYTE # 0.6 TH/MM3 (0-0.9); NEUT % 27.9 % (16.0-70.0); PLATELET COUNT 221 TH/MM3 (150-450); RED BLOOD COUNT 5.75 MIL/MM3 (4.50-5.90); RED CELL DISTRIBUTION WIDTH 14.9 % (11.6-17.2); WHITE BLOOD COUNT 2.9 TH/MM3 (4.0-11.0)
[2017-06-13 09:19] LABS: BICARBONATE 29.5 MEQ/L (21.0-32.0); CALCIUM 8.5 MG/DL (8.5-10.1); CREATININE 1.06 MG/DL (0.60-1.30); MAGNESIUM 1.8 MG/DL (1.5-2.5)
[2017-06-13 09:30] LABS: LYMPHOCYTES 48 % (9-44); MONOCYTES 16 % (0-8); POLYS (SEG NEUTROPHILS) 36 % (16-70)
[2017-06-13 10:00] VITALS: BP 124/83; PULSE 78; RESP 16; TEMP 97.8; O2SAT 99
[2017-06-13] MEDS ORDERED: ACETAMINOPHEN 325 MG TAB PO ONE (10:45)
[2017-06-13] MEDS ORDERED: PHENYTOIN SODIUM 100 MG CAP PO ONE (11:15)
[2017-06-13 11:20] VITALS: BP 122/83; TEMP 97.8
[2017-06-13 11:21] VITALS: RESP 16
== END 2017-06-13 11:23 | disposition home or self-care (01) ==
LOC: NEPE 07:06
DX: G40.909 Epilepsy, unspecified, not intractable, without status epilepticus (principal); R51 Headache; B20 Human immunodeficiency virus [HIV] disease; I10 Essential (primary) hypertension; E78.5 Hyperlipidemia, unspecified; F17.200 Nicotine dependence, unspecified, uncomplicated; Z91.14 Patient's other noncompliance with medication regimen
CPT/HCPCS: 70450; 80048; 83735; 85007; 85027; 85610; 85730; 96365; 99284; J7030; Q2009